=== PATIENT | male | born 1980 | race Caucasian/White ===

== ENCOUNTER 2020-09-15 23:59 | Emergency (ER) | payer MEDICAID ==
[~2020-09-15] VITALS: Ht 182.9 cm; Wt 75.0 kg
[2020-09-16 00:11] VITALS: BP 136/96
[2020-09-16] MEDS ORDERED: AMOX500C2 PO (01:37)
== END 2020-09-16 02:06 | disposition home or self-care (01) ==
LOC: ER 09-16
DX: U07.1 COVID-19 (principal); J02.0 Streptococcal pharyngitis; B95.0 Streptococcus, group A, as the cause of diseases classified elsewhere; F17.200 Nicotine dependence, unspecified, uncomplicated; F15.90 Other stimulant use, unspecified, uncomplicated; Z72.89 Other problems related to lifestyle; Z79.899 Other long term (current) drug therapy
CPT/HCPCS: 36415; 87635; 87880; 99283

== ENCOUNTER 2020-09-30 02:22 | Emergency (ER) | payer MEDICAID ==
[~2020-09-30] VITALS: Ht 182.9 cm; Wt 75.0 kg
[2020-09-30 03:01] LABS: CLARITY,URINE CLEAR (Clear); COLOR,URINE YELLOW (Yellow); GLUCOSE, URINE NEGATIVE (Neg); KETONES,URINE NEGATIVE (Neg); LEUKOCYTE ESTERASE ,URINE NEGATIVE (Neg); NITRITES, URINE NEGATIVE (Neg); OCCULT BLOOD,URINE SMALL (Neg); PH,URINE 5.5 (4.8-8.0); PROTEIN,URINE NEGATIVE (Neg); UROBILINOGEN,URINE 0.2 E.U/dL (0.2-1.0)
[2020-09-30 03:05] LABS: UA COLLECTION TYPE CLN CATCH MIDSTREAM
[2020-09-30] MEDS ORDERED: azithromycin 250mg tablet PO ONE (03:15)
[2020-09-30] MEDS ORDERED: CefTRIAXone 1000mg IM Kit (w/lidocaine diluent) IM ONE (03:15)
[2020-09-30] MEDS ORDERED: DOXY-1 PO (03:16)
[2020-09-30 03:32] VITALS: BP 138/70
[2020-09-30 03:44] LABS: BACTERIA,URINE FEW /HPF (Neg); SQUAMOUS EPITHELIAL CELL,UR FEW /LPF (FEW); WBC,URINE 0-4 /HPF (0-4)
== END 2020-09-30 03:40 | disposition home or self-care (01) ==
LOC: ER 02:23
DX: L03.113 Cellulitis of right upper limb (principal); N48.89 Other specified disorders of penis; F15.90 Other stimulant use, unspecified, uncomplicated; Z72.89 Other problems related to lifestyle; Z79.2 Long term (current) use of antibiotics
CPT/HCPCS: 36415; 81001; 87491; 87591; 96372; 99283; J0696